=== PATIENT | male | born 1985 | race African-American/Black ===

== ENCOUNTER 2018-11-03 14:20 | Emergency (ER) | payer OTHER ==
[~2018-11-03] VITALS: Ht 182.9 cm; Wt 106.6 kg
--- OUTSIDE RECORDS SUMMARY | 2018-11-03 14:22 | XMS REPORT | Clinical Summary ---
Author Author [facility]AH [facility] Address Unknown Phone Unavailable Care Team Providers Care Manager Intel Name Role Phone Sharpless PCP Allergies No Known Allergies Medications No known medications Active Problems Not on file Social History Date Tobacco Use Types Packs/Day Years Used Never Smoker Smokeless Tobacco: Never Used Tobacco Cessation: Counseling Given: No Alcohol Use Drinks/Week oz/Week Comments No Sex Assigned at Date Recorded Not on file Industry Job Start Date Occupation Not on file Not on file Not on file Travel End Travel History Travel Start No recent travel history available. Last Filed Vital Signs Not on file Plan of Treatment Not on file Results Not on fileafter 11/02/2017
--- OUTSIDE RECORDS SUMMARY | 2018-11-03 14:22 | XMS REPORT ---
Author Author [facility] Address Unknown Phone Unavailable Care Team Providers Care Bookkeeping Manager Name Role Phone TK GONZALEZ Unavailable Unavailable Problems This patient has no known problems. Allergies, Adverse Reactions, Alerts This patient has no known allergies or adverse reactions. Medications This patient has no known medications. Encounters Start Date/Time End Date/Time Encounter Type Admission Type Attending Clinicians Care Facility Care Department Encounter ID [id number] 00:00:00 2018-01-15 00:00:00 Outpatient [facility] [id number] Results Test Description Test Time Test Comments Text Results Atomic Results Result Comments RAD, CHEST, 2 VIEWS 2017-05-31 19:26:00 Reason for exam:->SHOULDER PAINShould this be performed at the bedside?->No FINAL REPORT Examination: Two view Chest X-ray. CLINICAL HISTORY: Pain COMPARISON:None. The cardiomediastinal and hilar contours are unremarkable. There is no focal consolidation, pleural effusion, pneumothorax or evidence of overt pulmonary edema. There is no acute bony abnormality. IMPRESSION: No acute abnormality. Signed: Humberto Coronaort Verified Date/Time: 05/31/2017 19:26:27 Reading Location: [address] Reading Room D CULTURE + GRAM STAIN 2016-08-10 10:38:00 CULTURE (BEAKER) (test cdzj=3964) No growth GRAM STAIN RESULT (BEAKER) (test crlk=5774) <1+ WBCs GRAM STAIN RESULT (BEAKER) (test ttwy=52752) No organisms seen
[2018-11-03] MEDS ORDERED: SODIUM CHLORIDE 0.9% 1000ML 1,000 ML IV ONE (14:45)
[2018-11-03] MEDS ORDERED: FAMOTIDINE 20 MG/2 ML VIAL IV NR (14:45)
[2018-11-03] MEDS ORDERED: SODIUM CHLORIDE 0.9% 1000ML 1,000 ML ONE (14:54)
[2018-11-03] MEDS ORDERED: ONDANSETRON HCL INJ 2MG/ML 2ML 2 MG/ML VIAL IV NR (15:00)
[2018-11-03 15:29] VITALS: BP 149/72
== END 2018-11-03 15:48 | disposition home or self-care (01) ==
LOC: FSED 14:20
DX: B34.9 Viral infection, unspecified (principal); R10.84 Generalized abdominal pain
CPT/HCPCS: 80053; 80076; 81003; 85025; 99283; J2405; J7030

== ENCOUNTER 2019-01-28 08:45 | Emergency (ER) | payer OTHER ==
[~2019-01-28] VITALS: Ht 182.9 cm; Wt 113.4 kg
--- OUTSIDE RECORDS SUMMARY | 2019-01-28 08:48 | XMS REPORT | Clinical Summary ---
Author Author [facility] Address Unknown Phone Unavailable Care Team Providers Care Forest Technician Name Role Phone Sharpless PCP Allergies No [...] Not on file Results Not on fileafter 01/27/2018
[2019-01-28] MEDS ORDERED: SODIUM CHLORIDE 0.9% 1000ML 1,000 ML IV STA ×2 (09:22→10:04)
[2019-01-28] MEDS ORDERED: PROMETHAZINE HCL (IM) 25 MG/ML VIAL IV STA (09:22)
[2019-01-28] MEDS ORDERED: PROMETHAZINE HCL (IM) 25 MG/ML VIAL ONE (09:41)
[2019-01-28] MEDS ORDERED: SODIUM CHLORIDE 0.9% 1000ML 1,000 ML ONE ×2 (09:41→10:08)
[2019-01-28 10:32] VITALS: BP 147/87
== END 2019-01-28 10:44 | disposition home or self-care (01) ==
LOC: FSED 08:45
DX: A08.4 Viral intestinal infection, unspecified (principal)
CPT/HCPCS: 80053; 81003; 85025; 99283; J2550; J7030

== ENCOUNTER 2019-05-09 09:39 | Emergency (ER) | payer OTHER ==
[~2019-05-09] VITALS: Ht 180.3 cm; Wt 106.8 kg
[2019-05-09] MEDS ORDERED: SODIUM CHLORIDE 0.9% 1000ML 1,000 ML IV STA ×2 (10:07)
[2019-05-09] MEDS ORDERED: KETOROLAC TROMETHAMINE 30 MG/ML VIAL IV ONE (10:15)
[2019-05-09] MEDS ORDERED: PROMETHAZINE 25MG/ NS 50ML (IV) IV ONE ×2 (10:15)
[2019-05-09] MEDS ORDERED: FAMOTIDINE 20 MG/2 ML VIAL IV ONE ×2 (10:15→10:20)
[2019-05-09] MEDS ORDERED: KETOROLAC TROMETHAMINE 30 MG/ML VIAL ONE (10:20)
[2019-05-09] MEDS ORDERED: PROMETHAZINE HCL (IM) 25 MG/ML VIAL ONE (10:20)
[2019-05-09] MEDS ORDERED: SODIUM CHLORIDE 0.9% 1000ML 2,000 ML ONE (10:20)
[2019-05-09] MEDS ORDERED: SODIUM CHLORIDE 0.9% 50ML 50 ML ONE (10:20)
[2019-05-09 11:23] VITALS: BP 136/84
== END 2019-05-09 11:35 | disposition home or self-care (01) ==
LOC: FSED 09:39
DX: R11.2 Nausea with vomiting, unspecified (principal); K52.9 Noninfective gastroenteritis and colitis, unspecified; E86.0 Dehydration
CPT/HCPCS: 80053; 81003; 85025; 96374; 96375; 99283; J1885; J2550; J7030

== ENCOUNTER 2019-08-08 18:37 | Emergency (ER) | payer OTHER ==
[~2019-08-08] VITALS: Ht 180.3 cm; Wt 100.7 kg
[2019-08-08] MEDS ORDERED: KETOROLAC TROMETHAMINE 30 MG/ML VIAL IV ONE (19:10)
[2019-08-08] MEDS ORDERED: PROMETHAZINE 12.5MG/ NACL 0.9% 12.5 MG/50 ML BAG IV ONE (19:15)
[2019-08-08] MEDS ORDERED: SODIUM CHLORIDE 0.9% 1000ML 1,000 ML IV SCH (19:15)
[2019-08-08] MEDS ORDERED: KETOROLAC TROMETHAMINE 30 MG/ML VIAL ONE (19:24)
[2019-08-08] MEDS ORDERED: PROMETHAZINE HCL (IM) 25 MG/ML VIAL ONE (19:25)
[2019-08-08] MEDS ORDERED: SODIUM CHLORIDE 0.9% 1000ML 1,000 ML ONE (19:25)
[2019-08-08] MEDS ORDERED: PROMETHAZINE HC25 M1 PO (20:11)
[2019-08-08] MEDS ORDERED: TESSALON PERLE100 MG PO (20:11)
[2019-08-08] MEDS ORDERED: BACITRACIN ZINC 0.9GM TP ONE (21:14)
== END 2019-08-08 20:19 | disposition home or self-care (01) ==
LOC: FSED 18:37
DX: R50.9 Fever, unspecified (principal); R05 Cough; R11.2 Nausea with vomiting, unspecified; J11.1 Influenza due to unidentified influenza virus with other respiratory manifestations
CPT/HCPCS: 80048; 80076; 85025; 99283; J1885; J2550; J7030

== ENCOUNTER 2019-08-24 21:23 | Emergency (ER) | payer OTHER ==
[~2019-08-24] VITALS: Ht 180.3 cm; Wt 97.5 kg
[~2019-08-24 21:23] MED LIST: PROMETHAZINE HC25 M1 PO; TESSALON PERLE100 MG PO
[2019-08-24] MEDS ORDERED: IBUPROFEN 600 MG TAB PO STA (22:03)
[2019-08-24] MEDS ORDERED: SODIUM CHLORIDE 0.9% 1000ML 1,000 ML IV SCH (22:15)
[2019-08-24] MEDS ORDERED: SODIUM CHLORIDE 0.9% 1000ML 1,000 ML ONE (22:33)
[2019-08-24] MEDS ORDERED: IBUPROFEN 600 MG TAB ONE (22:33)
--- NOTE | 2019-08-24 23:23 | Diagnostic Imaging Report ---
EXAMINATION: CXR 2 VIEW - HOPD INDICATION: Fever COMPARISON: None FINDINGS: TUBES and LINES: None. LUNGS: Normal lung volumes. A 6 mm round hyperdense nodule in the left lower lung. No consolidations. PLEURA: No pleural effusion or pneumothorax. HEART AND MEDIASTINUM: The cardiomediastinal silhouette is unremarkable. BONES AND SOFT TISSUES: No acute osseous lesion. Soft tissues are unremarkable. UPPER ABDOMEN: No free air under the diaphragm. IMPRESSION: A 6 mm round hyperdense nodule in the left lower lung is likely calcified granuloma, can be confirmed with nonemergent low-dose noncontrast chest CT. Signed by: Jamie Chandra DO on 08/24/2019 11:19 PM
--- NOTE | 2019-08-24 23:54 | NUR ---
PT ASLEEP LYING ON R-SIDE. LIGHTS ARE DIMMED. PT EASILY AWAKENED TO VOICE
[2019-08-25] MEDS ORDERED: SODIUM CHLORIDE 0.9% 500ML 500 ML IV ONE (00:45)
[2019-08-25] MEDS ORDERED: CEFTRIAXONE SOD 1 GM/NS 50 ML 50 ML IV ONE (00:45)
[2019-08-25] MEDS ORDERED: SODIUM CHLORIDE 0.9% 500ML 500 ML ONE (00:49)
[2019-08-25] MEDS ORDERED: CEFTRIAXONE SOD 1 GM VIAL ONE (00:50)
[2019-08-25] MEDS ORDERED: ACETAMINOPHEN 325 MG TAB ONE (00:58)
[2019-08-25] MEDS ORDERED: ACETAMINOPHEN 325 MG TAB PO ONE (01:15)
--- NOTE | 2019-08-25 02:34 | Diagnostic Imaging Report ---
EXAM: CT Chest WITHOUT contrast INDICATION: fever ,myaligas COMPARISON: Chest x-ray 08/24/2019 TECHNIQUE: Chest was scanned utilizing a multidetector helical scanner from the lung apex through the level of the adrenal glands without administration of IV contrast. Absence of intravenous contrast decreases sensitivity for detection of lymphadenopathy and vascular pathology. Coronal and sagittal reformations were obtained. Routine protocol was performed. IV CONTRAST: None COMPLICATIONS: None RADIATION DOSE: Total DLP: 891 mGy*cm Estimated effective dose: (DLP x 0.014 x size factor) mSv CTDIvol has been reviewed. It is below the limits set by the Radiation Protocol Committee (RPC). Dose modulation, iterative reconstruction, and/or weight based adjustment of the mA/kV was utilized to reduce the radiation dose to as low as reasonably achievable. FINDINGS: LINES/ TUBES: None. LUNGS AND AIRWAYS: Multifocal groundglass opacities in the mid to lower lungs. The nodule in the left lower lung on same-day chest x-ray corresponds to a dense focal/nodular groundglass opacity in the left lower lobe. Airways are normal. PLEURA: The pleural spaces are clear. HEART AND MEDIASTINUM: The thyroid gland is normal. No mediastinal, hilar or axillary lymphadenopathy. The heart is normal in size. There is no pericardial effusion. UPPER ABDOMEN: Unremarkable. BONES: The visualized bony thorax is within normal limits. SOFT TISSUES: Unremarkable. IMPRESSION: Multifocal groundglass opacities in the mid to lower lungs compatible with multifocal pneumonia, viral pneumonia is a possibility. The nodule in the left lower lung on day prior chest x-ray corresponds to a dense focal/nodular groundglass opacity in the left lower lobe. Impression discussed with Dr. Hawkins at 2:18 AM on 08/25/[address] Chandra via telephone. Signed by: Jamie Chandra DO on 08/25/2019 2:30 AM
[2019-08-25] MEDS ORDERED: CEFDINIR300 MG PO (03:31)
--- NOTE | 2019-08-25 03:36 | NUR ---
PT SWABBED FOR COVID 19 BY NGOZI Guzman FROM [facility] ER. SPECIMENS TO [facility] WITH NGOZI LAW
[2019-08-25 04:07] VITALS: BP 128/78
== END 2019-08-25 04:07 | disposition home or self-care (01) ==
LOC: FSED 21:23
DX: R50.9 Fever, unspecified (principal); J12.9 Viral pneumonia, unspecified
CPT/HCPCS: 71046; 71250; 80053; 80076; 81003; 85025; 87400; 87633; 87635; 99284; J0696; J7030; J7040

== ENCOUNTER 2019-08-29 17:50 | Inpatient (IN) | payer OTHER ==
[~2019-08-29] VITALS: Ht 180.3 cm; Wt 98.5 kg
[~2019-08-29 17:50] MED LIST changes: +CEFDINIR300 MG PO
[2019-08-29] MEDS ORDERED: PROMETHAZINE HCL (IM) 25 MG/ML VIAL ONE (18:51)
[2019-08-29] MEDS ORDERED: SODIUM CHLORIDE 0.9% 1000ML 2,000 ML ONE (18:52)
[2019-08-29] MEDS ORDERED: POTASSIUM CHLORIDE 20 MEQ TAB CR PO STA ×2 (19:13→21:43)
[2019-08-29] MEDS ORDERED: PROMETHAZINE 12.5MG/ NACL 0.9% 12.5 MG/50 ML BAG IV ONE (19:15)
[2019-08-29] MEDS ORDERED: POTASSIUM CHLORIDE 20 MEQ TAB CR PO ONE (19:24)
[2019-08-29] MEDS ORDERED: SODIUM CHLORIDE 0.9% 1000ML 1,000 ML IV SCH (19:30)
--- NOTE | 2019-08-29 20:36 | Diagnostic Imaging Report ---
EXAMINATION: CXR 1 [facility] INDICATION: Covid19 positive, short of breath COMPARISON: Chest CT 08/25/2019; chest x-ray 08/24/2019 FINDINGS: TUBES and LINES: None. LUNGS: Decreased lung volumes compared to prior. Increased hazy opacities in the bilateral mid to lower lungs. PLEURA: No pleural effusion or pneumothorax. HEART AND MEDIASTINUM: The cardiomediastinal silhouette is unremarkable. BONES AND SOFT TISSUES: No acute osseous lesion. Soft tissues are unremarkable. UPPER ABDOMEN: No free air under the diaphragm. IMPRESSION: Increased hazy opacities in the mid and lower lungs compared to chest x-ray on 08/23/2018, concerning for worsening of multifocal viral pneumonia. Signed by: Jamie Chandra DO on 08/29/2019 8:33 PM
[2019-08-29] MEDS ORDERED: NON-FORMULARY MEDICATION (Benzonatate (Tessalon Perle) 200 MG) PO PRN (20:45)
[2019-08-29] MEDS ORDERED: ZOLPIDEM TARTRATE 5 MG TAB PO PRN (20:45)
[2019-08-29] MEDS ORDERED: BENZONATATE 100 MG CAP PO PRN (21:00)
[2019-08-29 21:23] VITALS: BP 121/69
--- NOTE | 2019-08-29 21:36 | NUR ---
PT ARRIVED BY STRETCHER. PT AMBULATED FROM STRETCHER TO HOSPITAL BED. STEADY GAIT NOTED. ORIENTED PT TO HOSPITAL ROOM, CALL LIGHT, PHONE, BED CONTROLS AND LIGHTS. PT CURRENTLY ON O2 AT 2L. NO S/SX OF DISTRESS NOTED. MD Jonathan DEL CASTILLO AT BEDSIDE TO ASSESS PT. LEFT PT LAYING SEMI FOWLERS IN BED, BED IN LOW LOCKED POSITION, SIDE RAILS UPX2, CALL LIGHT AND PHONE WITHIN REACH.
[2019-08-29 21:50] VITALS: BP 121/69
--- NOTE | 2019-08-29 22:13 | NUR ---
SPOKE WITH MD MICHAUD CONCERNING CONSULTATION, NEW ORDERS RECEIVED.
[2019-08-29] MEDS: SODIUM CHLORIDE 0.9% 1000ML 1,000 ML IV SCH (22:45)
[2019-08-29] MEDS: CEFTRIAXONE SOD 1 GM/NS 50 ML 50 ML IV SCH (22:45)
--- NOTE | 2019-08-29 23:27 | Consultation ---
DATE OF CONSULTATION: Pulmonary/Critical Care Consultation HISTORY OF PRESENT ILLNESS: The patient is a 33-year-old man. He complains of fever and flu-like symptoms for a week and half. He has noticed some cough and some shortness of breath. He went to the Emergency Department on the . He had a CT scan that showed some small areas of nodular ground-glass opacities. He also had a coronavirus serology, which was positive. He was at home in self quarantine when he noticed worsening symptoms. He felt sicker. He had continued fevers and some worsening dyspnea. PAST SURGICAL HISTORY: Noncontributory. PAST MEDICAL HISTORY: None. SOCIAL HISTORY: The patient does smoke occasionally. He is not a drinker. He traveled to [place] for a [place]ala in July. He works as a taxi truck driver locally. He is at home with his , who also has coronavirus. REVIEW OF SYSTEMS: The patient has some fevers. He is not having any headache. He has no neck pain. He is not having any chest pain. He does note some cough. He has occasional dyspnea. He is not having any abdominal pain. There is no nausea or vomiting. He has no leg edema. He has no skin rashes. PHYSICAL EXAMINATION: VITAL SIGNS: The patient is afebrile. The blood pressure is 136/77. The pulse is 88. HEENT: Shows no facial swelling or erythema. CARDIAC: Exam reveals regular rate and rhythm with a normal S1 and S2. LUNGS: Auscultation of lungs shows clear breath sounds bilaterally. There is no wheezing. ABDOMEN: Soft, nontender. There is no rebound or guarding. EXTREMITIES: Show no leg edema or calf tenderness. There is no cyanosis or clubbing. SKIN: Shows no rashes. IMPRESSION: 1. Viral pneumonia. 2. Viral syndrome secondary to COVID-19. 3. Dehydration. 4. Hypokalemia. PLAN: 1. IV fluids. 2. Replace potassium. 3. Tylenol as needed for fevers. 4. Oxygen if required. 5. Observe the patient overnight. The patient continues to do well and then consider discharge for possible self quarantine at home. Guevara Lai MD [facility] /[id number]
[2019-08-29] MEDS: ACETAMINOPHEN 325 MG TAB PO PRN (23:34)
[2019-08-29] MEDS: AZITHROMYCIN 500MG/NS 250 ML 250 ML IV SCH (23:34)
[2019-08-30] VITALS (8 sets, daily range): BP systolic 111–147; BP diastolic 58–73
--- NOTE | 2019-08-30 00:20 | NUR ---
pt called with reports of feeling nauseated, gave pt emesis bags, pt started dry heaving. no emesis noted. administered Phenergan.
[2019-08-30] MEDS: PROMETHAZINE HCL 25 MG TAB PO PRN ×3 (00:25→22:00)
--- NOTE | 2019-08-30 01:52 | NUR ---
ROUNDED ON PATIENT, PT (L) SIDE LAYING RESTING 16 RR/MIN. NO S/SX OF DISTRESS NOTED. LEFT PT (L) SIDE LAYING SEMI FOWLERS IN BED, BED IN LOW LOCKED POSITION, SIDE RAILS UPX2, CALL LIGHT AND PHONE WITHIN REACH.
[2019-08-30] MEDS: ACETAMINOPHEN 325 MG TAB PO PRN ×3 (04:05→22:03)
--- NOTE | 2019-08-30 04:05 | NUR ---
BLOOD DRAWN FROM (L) AC FOR AM LABS. PRESSURE AND DRESSING APPLIED. VIALS DELIVERED TO LAB.
[2019-08-30 04:25] LABS: EOSINOPHILS # (AUTO) 0.1 (0.0-0.4); EOSINOPHILS % 1.5 % (0.0-6.0); HEMOGLOBIN 13.6 g/dL (14.0-18.0); LYMPHOCYTES % 13.1 % (18.0-39.1); MEAN CORPUSCULAR HGB CONC 32.4 g/dL (31-35); MEAN CORPUSCULAR VOLUME 92.7 fL (81-99); MONOCYTES # (AUTO) 0.2 (0.2-0.8); MONOCYTES % 3.2 % (4.4-11.3); NEUTROPHILS # (AUTO) 5.9 (2.1-6.9); NEUTROPHILS % 81.8 % (38.7-80.0); PLATELET COUNT 152 x10e3/uL (140-360); RED BLOOD COUNT 4.53 x10e6/uL (4.3-5.7); RED CELL DISTRIBUTION WIDTH 11.9 % (11.7-14.4)
[2019-08-30] MEDS: SODIUM CHLORIDE 0.9% 1000ML 1,000 ML IV SCH ×3 (04:25→13:42)
[2019-08-30 04:48] LABS: ALANINE AMINOTRANSFERASE 60 IU/L (0-55); ALBUMIN/GLOBULIN RATIO 0.7 (0.8-2.0); ALKALINE PHOSPHATASE 68 IU/L (40-150); BLOOD UREA NITROGEN 6 mg/dL (7-26); BUN/CREATININE RATIO 7 (6-25); CALCIUM 8.9 mg/dL (8.4-10.2); CARBON DIOXIDE 27 mmol/L (22-29); CHLORIDE 105 mmol/L (98-107); CREATININE, SERUM 0.89 mg/dL (0.72-1.25); EST GLOMERULAR FILTRATION RATE > 60 ML/MIN (60-); GLUCOSE 105 mg/dL (74-118); SODIUM 140 mmol/L (136-145)
[2019-08-30] MEDS ORDERED: POTASSIUM CHLORIDE 20 MEQ TAB CR PO SCH (07:00)
--- NOTE | 2019-08-30 07:15 | NUR ---
report received from evening RN. patient sleeping in bed, IV fluids running. WCTM.
--- NOTE | 2019-08-30 09:34 | Progress Note ---
DATE: SUBJECTIVE: The patient is feeling slightly better after receiving IV fluids. The patient still has muscle cramps and still with some fever. He is not having significant cough or dyspnea. PHYSICAL EXAMINATION: VITAL SIGNS: The blood pressure is 111/58 and the temperature is 101. Saturation is 97%. HEENT: Shows no facial swelling or erythema. CARDIAC: Reveals a regular rate and rhythm with normal S1 and S2. There are no murmurs or rubs heard. LUNGS: Auscultation of lungs reveals rhonchorous breath sounds bilaterally. There is no wheezing. ABDOMEN: Soft, nontender. There is no rebound or guarding. EXTREMITIES: Show no leg edema or calf tenderness. There is no cyanosis or clubbing. SKIN: Shows no rashes. NEUROLOGICAL: Shows no focal abnormalities. LABORATORY DATA: BUN to creatinine ratio has improved to 6 and 0.89. The CBC is within normal limits. IMPRESSION: 1. Viral syndrome secondary to COVID-19. 2. Viral pneumonia. 3. Dehydration. 4. Hypokalemia. PLAN: 1. Complete administration of IV fluids. 2. Tylenol as needed for fever. Avoid Motrin at this time. 3. Continue antiemetics as needed. 4. Out of bed as tolerated. MD STACY Crowder/DARREL /[id number]
--- NOTE | 2019-08-30 12:24 | Consultation ---
DATE OF CONSULTATION: HISTORY OF PRESENT ILLNESS: The patient is a COVID-19 viral bronchitis, upper respiratory infection, fever. This patient who is a very pleasant 33-year-old male denies any past medical history, comes in with fever, flu-like illness for a week. 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 He was in the emergency room a few days ago. He had a CT scan showed some nodular ground-glass opacities, COVID-19 was sent, came back positive. He went home. for a couple of days, but he was feeling sicker with shortness of breath, so he came here. His is also in the hospital. PAST MEDICAL HISTORY: Denies. PAST SURGICAL HISTORY: Denies. ALLERGIES: NKDA. SOCIAL HISTORY: There is no smoking, drug abuse, or alcohol abuse currently. FAMILY HISTORY: Otherwise noncontributory. REVIEW OF SYSTEMS: At present time, he has had a cough, nausea and not feeling well. He is otherwise stable. LABORATORY DATA: White count 7.26, hemoglobin 13, hematocrit 42. His sodium 140, potassium 4.0, creatinine 0.89, glucose of 105. The patient's case was discussed yesterday with the ER and was discussed today with Pulmonary. PHYSICAL EXAMINATION: GENERAL: He is currently alert, oriented, does not seem to be in acute distress. VITAL SIGNS: Stable. He is febrile, T-max 101.6. HEENT: Not icteric. NECK: Supple. CHEST: Clear bilateral. HEART: S1, S2. No murmurs. ABDOMEN: Soft. . EXTREMITIES: No edema. SKIN: No rash. IMPRESSION: Acute viral illness, COVID-19, bronchitis, nausea, vomiting, dehydration, clinically seems to be getting better. We will put him on Rocephin and azithromycin just to rule out superimposed bacterial infection. IV fluids, supportive care. We will follow. MD PING Lopez/DARREL /[id number]
--- NOTE | 2019-08-30 14:40 | NUR ---
Dr. Shelton at bedside. Patient resting in bed. Patient removed off of oxygen and on room air for a base line test. will check o2 in [address] Shelton.
--- NOTE | 2019-08-30 15:00 | NUR ---
patient 91% on room air. patient does state he feels slightly more short of breath than before. placed on 1.5 L of o2 via NC. Dr. Shelton notified of room air results. [facility].
[2019-08-30] MEDS ORDERED: ACETAMINOPHEN 1000 MG/100 ML IV STA (15:20)
--- NOTE | 2019-08-30 15:45 | NUR ---
patient's temp 102.7. Dr. Lai notified. 1g of IV Tylenol ordered and already given to the patient. patient declined any assistance and voiced no needs. SIERRA.
[2019-08-30] MEDS: AZITHROMYCIN 500MG/NS 250 ML 250 ML IV SCH (22:00)
[2019-08-30] MEDS: CEFTRIAXONE SOD 1 GM/NS 50 ML 50 ML IV SCH (23:01)
[2019-08-31] VITALS: BP 117/59
[2019-08-31] MEDS: ACETAMINOPHEN 325 MG TAB PO PRN ×2 (03:59→10:32)
[2019-08-31 04:00] VITALS: BP 142/70
[2019-08-31 08:00] VITALS: BP 129/65
[2019-08-31 09:36] LABS: BASOPHILS % 0.1 % (0.0-1.0); EOSINOPHILS % 0.1 % (0.0-6.0); HEMATOCRIT 37.5 % (38.2-49.6); HEMOGLOBIN 12.3 g/dL (14.0-18.0); LYMPHOCYTES # (AUTO) 0.8 (1.0-3.2); LYMPHOCYTES % 7.6 % (18.0-39.1); MEAN CORPUSCULAR HEMOGLOBIN 29.8 pg (28-32); MEAN CORPUSCULAR HGB CONC 32.8 g/dL (31-35); MEAN CORPUSCULAR VOLUME 90.8 fL (81-99); MONOCYTES # (AUTO) 0.3 (0.2-0.8); MONOCYTES % 3.1 % (4.4-11.3); NEUTROPHILS # (AUTO) 9.5 (2.1-6.9); NEUTROPHILS % 88.4 % (38.7-80.0); PLATELET COUNT 181 x10e3/uL (140-360); RED BLOOD COUNT 4.13 x10e6/uL (4.3-5.7); RED CELL DISTRIBUTION WIDTH 11.9 % (11.7-14.4)
[2019-08-31] MEDS: SODIUM CHLORIDE 0.9% 1000ML 1,000 ML IV SCH (09:45)
[2019-08-31] MEDS ORDERED: ALBUTEROL SULFATE HFA 8GM INHALATION AEROSOL INH PRN (11:00)
[2019-08-31 12:00] VITALS: BP 130/70
--- NOTE | 2019-08-31 12:19 | Progress Note ---
DATE: SUBJECTIVE: Mr. Lynch is feeling better. He is still having some shortness of breath, but I am concerned that the patient has underlying history of asthma. He stated he does usually get short of breath occasionally. REVIEW OF SYSTEMS: HEENT: Negative. PULMONARY: Negative. CARDIAC: Negative. : Negative. He is still with some fever, but he feels good enough to be discharged. PHYSICAL EXAMINATION: GENERAL: He is currently alert, oriented, does not seem to be in acute distress. VITAL SIGNS: Stable, low fever. HEENT: Not icteric. NECK: Supple. CHEST: Very few wheezing. IMPRESSION: 1. COVID-19, bronchitis. 2. Concerned about reactive airway. We will start albuterol inhaler. 3. Clinically stable. Discharge home with Levaquin with azithromycin with Z-Josse and Augmentin and to follow up with me in 2 weeks. MD PING Lopez/DARREL /[id number]
--- NOTE | 2019-08-31 12:46 | NUR ---
PATIENT DISCHARGED. IV REMOVED- BLEEDING CONTROLLED AND DRESSING APPLIED. TELEMETRY REMOVED AND RETURNED. DISCHARGE INSTRUCTIONS GIVEN TO PATIENT. PATIENT VERBALIZED UNDERSTANDING OF ISOLATION GUIDELINES NEEDED. WAITING FOR TO INFORMATION SECURITY ANALYST PATIENT AT THIS TIME. SIERRA.
--- NOTE | 2019-08-31 14:20 | Progress Note ---
DATE: SUBJECTIVE: The patient still has some fevers. Overall, he feels improved. He is now off oxygen and saturating 95%. PHYSICAL EXAMINATION: VITAL SIGNS: The blood pressure is 130/70, pulse is 88. HEENT: Shows no facial swelling or erythema. CARDIAC: Reveals regular rate and rhythm with normal S1, S2. LUNGS: Auscultation of lungs shows clear breath sounds bilaterally. There is no wheezing. ABDOMEN: Soft, nontender. There is no rebound or guarding. EXTREMITIES: Show no leg edema or calf tenderness. There is no cyanosis or clubbing. SKIN: Shows no rashes. NEUROLOGICAL: Shows no focal abnormalities. LABORATORY DATA: White blood cell count is 10.7 and hemoglobin is 12.3. The platelet count is 181. BUN to creatinine ratio is normal. The other electrolytes are within normal limits. IMPRESSION: 1. Viral pneumonia. 2. COVID-19 infection. PLAN: 1. Discharge home. 2. Tylenol of p.o. fluids. 3. Zithromax at home. 4. Albuterol rescue inhaler at home. Guevara Lai MD [facility]/TREEL /[id number]
--- NOTE | 2019-08-31 14:57 | NUR ---
PATIENT'S HERE TO PICK HIM UP. MASK PLACED ON PATIENT AND WHEELED TO FRONT OF HOSPITAL BY MEDICAL CERTIFICATION SPECIALIST.
--- NOTE | 2019-10-07 04:32 | Discharge Summary ---
FINAL DIAGNOSES: COVID-19 with pneumonia and hypoxia. CONSULTANTS: 1. Dr. Rodriguez, Infectious Disease. 2. Dr. Lai, Pulmonary. PROCEDURES/STUDIES PERFORMED: None. HISTORY: Per H and P. HOSPITAL COURSE: The patient underwent Rocephin, azithromycin, and slowly improved. The patient was sent home. Oxygen was arranged by Dr. Rodriguez. The patient also has a pulse oximeter where he can check his oxygen saturation at home. The patient was told to stay home for 14 days and follow up with Dr. Rodriguez. CONDITION ON DISCHARGE: Improved. DISCHARGE MEDICATIONS: Please see medication reconciliation form. Chasityching MD REINIER Colunga/DARREL /[id number]
== END 2019-08-31 15:05 | disposition home or self-care (01) | DRG 195 ==
LOC: FSED 17:50 → ERHOLD 19:32 → IMCU 21:36
PROVIDERS: ADMIT Internal Medicine; ATTEND Internal Medicine
DX: J12.9 Viral pneumonia, unspecified (principal); B97.29 Other coronavirus as the cause of diseases classified elsewhere; E86.0 Dehydration; E87.6 Hypokalemia
CPT/HCPCS: 36415; 71045; 80048; 80053; 80076; 81003; 83605; 85025; 87040; 99251; 99284; J0456; J0696; J2550; J7030